=== PATIENT | female | born 2005 | race Hispanic/Latino ===

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

== ENCOUNTER 2023-08-03 20:33 | Emergency (ER) | payer SELFPAY ==
[2023-08-03] MEDS ORDERED: Ibuprofen 800 MG TAB ONE (21:17)
== END 2023-08-03 22:30 | disposition home or self-care (01) ==
LOC: MADERS 20:33
DX: M54.2 Cervicalgia (principal); R51.9 Headache, unspecified
CPT/HCPCS: 70450; 72125